=== PATIENT | male | born 1975 | race Caucasian/White ===

== ENCOUNTER 2022-11-14 15:40 | Emergency (ER) | payer BC ==
[~2022-11-14] VITALS: Ht 185.4 cm; Wt 99.8 kg
[2022-11-14 15:51] VITALS: BP_SYST 134; PULSE 85; RESP 18; TEMP 98.3; O2SAT 98
--- NOTE | 2022-11-14 15:59 | NUR ---
Pt brought by self, ambulatory, A&Ox4, pt presents to ER with R hand pain/swelling/redness after punching a wall few days ago, redness /wound notice on R hand, pt afebrile, skin pink and warm, cap refill <3.
--- NOTE | 2022-11-14 16:30 | NUR ---
Dr Murphy evaluating patient at bedside
[2022-11-14] MEDS ORDERED: CEPH-548 PO (16:59)
[2022-11-14] MEDS ORDERED: IBUP-1971 PO (16:59)
[2022-11-14 17:14] VITALS: BP_SYST 134; PULSE 85; RESP 18; TEMP 98.3; O2SAT 98
--- NOTE | 2022-11-14 17:15 | NUR ---
Patient given written and verbal discharge instructions and verbalizes understanding. ER MD discussed with patient the results and treatment provided. Patient in stable condition. ID arm band removed. Rx of Cephalexin,Ibuprofen given. Patient educated on pain management and to follow up with PMD. Pain Scale 3/10. Opportunity for questions provided and answered. Medication side effect fact sheet provided.
== END 2022-11-14 17:15 | disposition home or self-care (01) ==
LOC: SED 15:40
DX: S60.221A Contusion of right hand, initial encounter (principal); L03.113 Cellulitis of right upper limb; Z79.899 Other long term (current) drug therapy; W22.09XA Striking against other stationary object, initial encounter; Y93.89 Activity, other specified; Y92.89 Other specified places as the place of occurrence of the external cause; Y99.8 Other external cause status
CPT/HCPCS: 99283